=== PATIENT | female | born 1950 | race Hispanic/Latino ===

== ENCOUNTER 2017-02-15 10:22 | Emergency (ER) | payer MEDICARE, OTHER ==
[~2017-02-15 10:22] MED LIST: AMLO1CAP13 PO; GABA300S PO; GLIP10TA9 PO; INS7030 SQ; METO5TAB7 PO; TYL3B PO
[2017-02-15] MEDS ORDERED: BISACODYL 10 MG SUPP.RECT RC ONE (10:47)
[2017-02-15] MEDS ORDERED: GLYCERIN ADULT SUPP.RECT RC ONE (12:02)
== END 2017-02-15 15:37 | disposition home or self-care (01) ==
LOC: EDH 10:22
DX: K59.00 Constipation, unspecified (principal); E11.9 Type 2 diabetes mellitus without complications; I10 Essential (primary) hypertension; E78.5 Hyperlipidemia, unspecified; G47.30 Sleep apnea, unspecified; Z88.0 Allergy status to penicillin; Z88.6 Allergy status to analgesic agent; Z88.2 Allergy status to sulfonamides
CPT/HCPCS: 82270

== ENCOUNTER 2024-12-03 22:52 | Emergency (ER) | payer MEDICARE ==
[~2024-12-03] VITALS: Ht 154.9 cm; Wt 122.5 kg
[~2024-12-03 22:52] MED LIST changes: +AMLO-74 PO; -AMLO1CAP13 PO; -GABA300S PO; +GABA300S3 PO; +GLIP10TA16 PO; -GLIP10TA9 PO
--- NOTE | 2024-12-03 23:08 | ERN ---
ED Note History of Present Illness Stated Complaint: CHEST PAIN Chief Complaint: Chest Pain Time Seen by MD: 22:54 Dictation: Patient is brought in by EMS for dizziness chest pain. Patient reports that she was laying in her recliner watching TV. She tried to get up when everything started spinning. She got very nauseous when it started having pain in the left side of her chest. She felt very dizzy and could not get up. EMS did a pre- hospital EKG which was reviewed without any acute ischemic changes. They did give her nitroglycerin. Patient reports allergy to aspirin. Patient reports that she had a similar episode two weeks ago with vomiting. EMS was called but she declined transfer at that time. She does have diabetes. Denies any known history of CAD. No stents. Has hypertension. Patient denies any difficulty with high cholesterol. Symptoms started approximately 2 hours ago. Allergies: Coded Allergies: diphenhydramine HCl (Unverified Allergy, Severe, SWELLING TO THROAT, 09/27/11) Sulfa (Sulfonamide Antibiotics) (Unverified Allergy, Intermediate, DIARRHEA, RASH, 09/19/11) amoxicillin (Unverified Allergy, Unknown, DIARRHEA, RASH, 08/29/14) aspirin (Unverified Allergy, Unknown, GI BLEED, 08/29/14) Uncoded Allergies: HCTZ (Allergy, Unknown, SWELLING, 08/29/14) SWELLING THRAOT AND LOWER EXT. LINSINOPRIL (Allergy, Unknown, SWELLING, 08/29/14) SWELLING THRAOT AND LOWER EXT. Home Meds Active Scripts Ondansetron (Ondansetron Odt) 4 Mg Tab.rapdis, 1 TAB PO Q6HPRN PRN for nausea/vomiting for 4 Days, #16 TAB 0 Refills Prov:MARC MOLINA MD 12/04/24 Reported Medications Amlodipine Besylate/Benazepril (Amlodipine-Benazepril 10-20 mg) 1 Each Capsule, 1 EACH PO AM, CAP 08/30/14 Hum Insulin NPH/Reg Insulin Hm (Humulin 70/30) 100 Units/Ml Inj, 60 UNITS SQ 1800, ML 08/29/14 Hum Insulin NPH/Reg Insulin Hm (Humulin 70/30) 100 Units/Ml Inj, 90 UNITS SQ ACBKFST, ML 08/29/14 Metolazone (Metolazone) 5 Mg Tablet, 1 TAB PO TUE & FRI, TAB 08/29/14 Glipizide (Glipizide) 10 Mg Tablet, 10 MG PO BID, TAB 08/29/14 Gabapentin (Gabapentin) 300 Mg/6 Ml Solution, 300 MG PO BID, ML 08/29/14 Acetaminophen with Codeine (Acetaminophen with Codeine #3 Tablet) 1 Tab Tab, 1 TAB PO Q6H PRN for PAIN, TAB 08/29/14 Review of System Dictation Ten systems reviewed and negative except as noted in HPI Initial Vital Sign VS Vital Signs Date Time Temp Pulse Resp B/P (MAP) Pulse Ox O2 Delivery O2 Flow Rate FiO2 12/03/24 22:53 98.1 99 20 185/85 95 Room Air 0 12/03/24 23:19 21 Physical Exam Dictation GEN: non toxic, NAD HEENT: atrumatic, right keep up misshapen for cataract surgery. Conjugate gaze. Patient has right gaze nystagmus with mild rotary component. NECK: Soft supple nontender Heart RRR, no murmurs Chest: No deformity Lungs: Lungs clear to auscultation Ab: Soft nondistended nontender Back: No midline step-offs. No gross deformity. No CVA tenderness : m/s: Moving all four extremities. No gross deformity. No pronator drift. No ataxia to [id number]. Patient has right gaze nystagmus with motor with component. Are left big toe does have a dried distal ulceration likely from poor flow. Does not appear infectious. No redness. No drainage. Patient currently undergoing care by Podiatry. Neuro: CN 2-12 intact. Moving all four extremities. Psych: Cooperative Results (Laboratory/Radiology) Laboratory/Radiology Laboratory Tests Test 12/03/24 23:11 12/04/24 00:46 White Blood Count 8.4 K/uL (4.8-10.8) Red Blood Count 4.22 MIL/uL (4.00-5.50) Hemoglobin 11.7 g/dL (12.0-16.0) L Hematocrit 35.5 % (36-48) L Mean Corpuscular Volume 84.1 fL (79-99) Mean Corpuscular Hemoglobin 27.7 pg (27.0-33.0) Mean Corpuscular Hemoglobin Concent 33.0 g/dL (32.0-36.0) Red Cell Distribution Width 15.7 % (11.0-15.5) H Platelet Count 216 K/uL (130-400) Mean Platelet Volume 8.7 fL (7.5-10.5) Immature Granulocyte % (Auto) 0.6 % (0-1) Neutrophils (%) (Auto) 63.8 % (40.0-77.0) Lymphocytes (%) (Auto) 26.8 % (21.0-51.0) Monocytes (%) (Auto) 6.0 % (3.0-13.0) Eosinophils (%) (Auto) 2.3 % (0.0-8.0) Basophils (%) (Auto) 0.5 % (0.0-5.0) Neutrophils # (Auto) 5.4 K/uL (1.8-7.7) Lymphocytes # (Auto) 2.3 K/uL (1.0-4.8) Monocytes # (Auto) 0.5 K/uL (0.1-1.0) Eosinophils # (Auto) 0.19 K/uL (0.00-0.70) Basophils # (Auto) 0.04 K/uL (0.00-0.20) Absolute Immature Granulocyte (auto 0.05 K/uL (0-1) Nucleated Red Blood Cells 0.0 % (0.0-0.19) Sodium Level 143 mmol/L (136-145) Potassium Level 3.9 mmol/L (3.5-5.1) Chloride Level 103 mmol/L (101-111) Carbon Dioxide Level 34 mmol/L (21-32) H Blood Urea Nitrogen 28 mg/dL (7-18) H Creatinine 1.3 mg/dL (0.5-1.0) H Glomerular Filtration Rate Calc 43 mL/min (>90) Random Glucose 128 mg/dL (70-105) H Total Calcium 9.2 mg/dL (8.5-10.1) Total Bilirubin 0.5 mg/dL (0.2-1.0) Aspartate Amino Transf (AST/SGOT) 31 U/L (10-37) Alanine Aminotransferase (ALT/SGPT) 21 U/L (12-78) Alkaline Phosphatase 88 U/L (50-136) Troponin I High Sensitivity 8 ng/L (4-50) 9 ng/L (4-50) Total Protein 7.1 g/dL (6.0-8.3) Albumin 3.0 g/dL (3.5-5.0) L EKG Comment: Sinus rhythm 81 first-degree AV block OR of 212 QRS of 82 QTC of 471 left axis deviation QRS complexes narrow good R-wave progression STT wave segments without any acute ischemic changes. Interpretation abnormal X-RAY Comment: REASON: cp ORDERING PHYSICIAN: MARC MOLINA MD PROCEDURE: CXR1VW - CHEST 1VW EXAM: CR Chest, 1 View. CLINICAL HISTORY: cp COMPARISON: None provided. FINDINGS: LUNGS: There is no mass, infiltrate, or acute pulmonary abnormality. PLEURAL SPACES: No pleural effusion or pneumothorax. MEDIASTINUM: There is cardiomegaly BONES: No aggressive appearing osseous lesion seen. IMPRESSION: No acute cardiopulmonary pathology is evident. /[place] ED Course ED Course Orders Procedure Category Date Status Time Cbc With Differential LAB 12/03/24 Complete 23:01 Comprehensive LAB 12/03/24 Complete Metabolic Panel 23:01 Troponin I High LAB 12/03/24 Complete Sensitivity 23:01 12 Lead Ekg Tracing- EKG 12/03/24 Complete Technical 23:01 Ondansetron 4mg Inj PHA 12/03/24 Complete (Zofran 4mg Inj) 23:30 Meclizine Hcl 25 Mg PHA 12/03/24 Complete (Antivert 25 Mg) 23:30 Chest 1vw RAD 12/03/24 Resulted 23:01 Troponin I High LAB 12/04/24 Complete Sensitivity 00:10 Current Medications Medications (Trade) Dose Ordered Sig/Lon Route PRN Reason Start Time Stop Time Status Last Admin Dose Admin Meclizine HCl (ANTIvert 25 mg) 25 mg ONCE ONCE PO 12/03/24 23:30 12/03/24 23:56 DC Ondansetron HCl (zoFRAN 4MG INJ) 4 mg ONCE ONCE IVP 12/03/24 23:30 12/03/24 23:31 DC 12/03/24 23:57 Vital Signs Date Time Temp Pulse Resp B/P (MAP) Pulse Ox O2 Delivery O2 Flow Rate FiO2 12/04/24 01:41 98.1 82 19 151/68 99 Room Air* 0 21 12/04/24 01:04 98.1 85 19 150/69 98 Room Air* 0 21 12/04/24 00:15 98.2 81 18 151/75 97 Room Air* 0 21 12/03/24 23:19 98.1 82 19 159/72 98 Room Air* 0 21 12/03/24 22:53 98.1 99 20 185/85 95 Room Air 0 Medical Decision Making MDM Patient has exam findings and history consistent with peripheral vertigo with nystagmus to the right was rotary component and history consistent with this as well. Treat with meclizine and Zofran. Given age and risk factors we will also do labs and EKG. Patient feeling better with Zofran. Had allergy to Benadryl. pt declined meclizine. Lateral gaze nystagmus resolved with time here. Patient improved. Discharged home DX & DISP Disposition: Discharge Departure Impression: Primary Impression: BPPV (benign paroxysmal positional vertigo) Condition: Improved Scripts Ondansetron (Ondansetron Odt) 4 Mg Tab.rapdis 1 TAB PO Q6HPRN PRN for nausea/vomiting for 4 Days, #16 TAB 0 Refills Prov: MARC MOLINA MD 12/04/24 Additional Instructions: Zofran as needed for nausea and vomiting Move slowly as sudden movements can set off her vertigo Return for worsening symptoms not improved with medication, inability to take care of herself, or any other concerns Referrals: SELF,REFERRAL (PCP) MARC MOLINA MD Dec 03, 2024 23:08
--- NOTE | 2024-12-03 23:21 | EKG ---
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
[2024-12-03 23:29] LABS: IMMATURE GRANULOCYTE ABSOLUTE 0.05 K/uL (0-1); NUCLEATED RED BLOOD CELLS 0.0 % (0.0-0.19); PLATELET COUNT (AUTO) 216 K/uL (130-400); RED BLOOD CELL COUNT(AUTO) 4.22 MIL/uL (4.00-5.50); RED CELL DISTRIBUTION WIDTH 15.7 % (11.0-15.5); WHITE BLOOD COUNT (AUTO) 8.4 K/uL (4.8-10.8)
[2024-12-03 23:39] LABS: CREATININE 1.3 mg/dL (0.5-1.0); GLOMERULAR FILTR. RATE CALC 43.0 mL/min (>90); GLUCOSE,RANDOM 128.0 mg/dL (70-105); SODIUM SERUM 143.0 mmol/L (136-145); UREA NITROGEN, BLOOD 28.0 mg/dL (7-18)
[2024-12-03 23:49] LABS: ASPARTATE AMINOTRANSFERASE 31.0 U/L (10-37); TOTAL PROTEIN, SERUM 7.1 g/dL (6.0-8.3)
--- NOTE | 2024-12-03 23:54 | HMCIMG ---
EXAM: CR Chest, 1 View. CLINICAL HISTORY: cp COMPARISON: None provided. FINDINGS: LUNGS: There is no mass, infiltrate, or acute pulmonary abnormality. PLEURAL SPACES: No pleural effusion or pneumothorax. MEDIASTINUM: There is cardiomegaly BONES: No aggressive appearing osseous lesion seen. IMPRESSION: No acute cardiopulmonary pathology is evident. /[place]
[2024-12-04] MEDS ORDERED: ONDA-243 PO (01:21)
[2024-12-04 01:41] VITALS: BP 151/68; PULSE 82; RESP 19; TEMP 98.1; O2SAT 99
== END 2024-12-04 01:49 | disposition home or self-care (01) ==
LOC: EDH 22:52
DX: H81.11 Benign paroxysmal vertigo, right ear (principal); Z79.84 Long term (current) use of oral hypoglycemic drugs; Z79.899 Other long term (current) drug therapy; Z88.0 Allergy status to penicillin; Z88.2 Allergy status to sulfonamides; Z88.6 Allergy status to analgesic agent
CPT/HCPCS: 99285; 96374; 71045; 84484 ×2; 80053; 85025; 36415; 93005; J2405